=== PATIENT | male | born 1935 | race Two or more races ===

== ENCOUNTER → 2025-02-18 13:57 | Outpatient (REF) | payer MEDICARE, OTHER, SELFPAY | LOC: RAD 13:57 | PROVIDERS: ATTENDING PHYSICIAN Internal Medicine Geriatric Medicine | DX: M25.532 Pain in left wrist (principal); M25.522 Pain in left elbow | CPT/HCPCS: 73080; 73110 ==

== ENCOUNTER 2025-09-18 17:35 | Inpatient (IN) | payer MEDICARE, OTHER, SELFPAY ==
[2025-09-18 13:49] VITALS: BMI 27.1
--- NOTE | 2025-09-18 13:54 | ED.GENMED ---
History of Present Illness
<Mario Morgan MD, Resident - Last Filed: 09/18/25 16:12>
General
Chief Complaint: Fall
Time Seen by Provider: 09/18/25 13:52
History of Present Illness
History of Present Illness:
89 yo M PMH COPD, CAD, HTN, HLD, CKD p/w fall coming from [facility].
During my interview, arousable but appears to persistently fall asleep on me.
He says he woke up on the ground and does not have any recollection of series of events.
Per ED nursing staff, he was found on the ground for 6-7 hours, does not remember if he had pain, palpitations, etc.
Does not appear to be a reliable historian to me.
Review of Systems
<Mario Morgan MD, Resident - Last Filed: 09/18/25 16:12>
Review of Systems
Unable to obtain full review of systems at this time due to: due to acuity
Phy Exam
<Mario Morgan MD, Resident - Last Filed: 09/18/25 16:12>
Physical Exam
Physical Exam:
VS: HR 79; T 98.9 on 2L O2
General: arousable, but persistently falls asleep on me, coarse breath sounds
CV: no murmurs on my exam
Pulm: coarse breath sounds, with wheezes
Abd: no tenderness to palpation
MSK: L > R swelling, but not tender
Neuro: AOx3, but not able to provide a history, grossly nonfocal
Course
<Mario Morgan MD, Resident - Last Filed: 09/18/25 16:12>
Orders/Labs/Results
Orders:
Orders
09/18/25 13:53
ECG [Electrocardiogram (*1)] Urgent
Reason for Study: Fatigue / Weakness
EKG- Treatment ONCE
09/18/25 13:57
CR Chest - 2 Views Urgent
Comment:
Reason For Exam: respiratory distress
09/18/25 13:58
Complete Blood Count/With Diff Urgent
09/18/25 13:59
COVID-19 Antigen Urgent
Source: Nasal Swab
INF RAPID [Influenza A+B Rapid Molecular] Urgent
EMMA Source: Nasal Swab
Specimen Description:
09/18/25 14:25
Add On- LAB Urgent
Tests Added?: CK, VBG
09/18/25 14:29
CT Head W/o Iv Contrast Urgent
Comment:
Reason For Exam: fall
Urinalysis Reflex To Culture Urgent
09/18/25 15:03
Arterial Blood Gas Urgent
Comment: ADD ON
09/18/25 15:54
Comprehensive Metabolic Panel Urgent
Creatine Phosphokinase Urgent
Comment: ADD ON
NT-proBNP Urgent
Troponin I Urgent
Abnormal Lab Results
09/18/25
13:58
RBC 3.05 L 10^6/uL
(4.70-6.10)
Hgb 10.3 L g/dL
(13.0-18.0)
Hct 30.5 L %
(39.0-52.0)
MCV 100.0 H fL
(80.0-94.0)
MCH 33.8 H pg
(27.0-31.0)
RDW 21.5 H %
(11.5-14.5)
MPV 11.4 H fL
(7.4-10.4)
Abs Immat Gran (auto) 0.1 H 10^3/uL
(0-0.05)
Absolute Lymphs (auto) 0.9 L 10^3/uL
(1.2-3.4)
Absolute Monos (auto) 1.2 H 10^3/uL
(0.1-0.6)
Immature Gran % 0.9 H %
(0-0.5)
Lymphocytes % 11.9 L %
(20.5-51.1)
Monocytes % 15.5 H %
(1.7-9.3)
09/18/25 13:58
Vital Signs
Initial and Last Documented VS:
Initial Vital Signs
Temp Pulse Resp
98.9 F 79 18
09/18/25 13:49 09/18/25 13:49 09/18/25 13:49
Last Documented Vital Signs
Temp Pulse Resp
98.9 F 79 18
09/18/25 13:49 09/18/25 13:49 09/18/25 13:49
<Cesar Padilla MD - Last Filed: 09/18/25 15:15>
Orders/Labs/Results
Orders:
Orders
09/18/25 13:53
ECG [Electrocardiogram (*1)] Urgent
Reason for Study: Fatigue / Weakness
EKG- Treatment ONCE
09/18/25 13:57
CR Chest - 2 Views Urgent
Comment:
Reason For Exam: respiratory distress
09/18/25 13:58
Complete Blood Count/With Diff Urgent
09/18/25 13:59
COVID-19 Antigen Urgent
Source: Nasal Swab
INF RAPID [Influenza A+B Rapid Molecular] Urgent
EMMA Source: Nasal Swab
Specimen Description:
09/18/25 14:25
Add On- LAB Urgent
Tests Added?: CK, VBG
09/18/25 14:29
CT Head W/o Iv Contrast Urgent
Comment:
Reason For Exam: fall
Urinalysis Reflex To Culture Urgent
09/18/25 15:03
Arterial Blood Gas Urgent
Comment: ADD ON
09/18/25 15:54
Comprehensive Metabolic Panel Urgent
Creatine Phosphokinase Urgent
Comment: ADD ON
NT-proBNP Urgent
Troponin I Urgent
Abnormal Lab Results
09/18/25
13:58
RBC 3.05 L 10^6/uL
(4.70-6.10)
Hgb 10.3 L g/dL
(13.0-18.0)
Hct 30.5 L %
(39.0-52.0)
MCV 100.0 H fL
(80.0-94.0)
MCH 33.8 H pg
(27.0-31.0)
RDW 21.5 H %
(11.5-14.5)
MPV 11.4 H fL
(7.4-10.4)
Abs Immat Gran (auto) 0.1 H 10^3/uL
(0-0.05)
Absolute Lymphs (auto) 0.9 L 10^3/uL
(1.2-3.4)
Absolute Monos (auto) 1.2 H 10^3/uL
(0.1-0.6)
Immature Gran % 0.9 H %
(0-0.5)
Lymphocytes % 11.9 L %
(20.5-51.1)
Monocytes % 15.5 H %
(1.7-9.3)
09/18/25 13:58
Vital Signs
Initial and Last Documented VS:
Initial Vital Signs
Temp Pulse Resp
98.9 F 79 18
09/18/25 13:49 09/18/25 13:49 09/18/25 13:49
Last Documented Vital Signs
Temp Pulse Resp
98.9 F 79 18
09/18/25 13:49 09/18/25 13:49 09/18/25 13:49
<Mario Morgan MD, Resident - Last Filed: 09/18/25 16:12>
MDM/Problems Addressed
Differential Diagnosis Includes:
syncope, arrhythmia, ACS, hypercarbia, seizure, vasovagal, cardiac valvular disease, rhabdomyolysis
MDM/Problems Addressed:
89 yo M PMH COPD, CAD, HTN, HLD, CKD p/w fall coming from [facility].
Does not appear to be a reliable historian, but ED nursing staff reports he was down for several hours.
He denies any focal pain on joints for now
will need to workup arrhythmia, concern for rhabdo given that he was down for hours. He is persistently sleeping while talking me, concern for hypercarbia given hx of COPD
seizure? no clear lateral tongue bite on my exam
EKG appears NSR with RBBB
Plan:
- CBC, CMP
- CK
- VBG
- Troponin
- EKG
- CXR
- CTH noncontrast
- UA
- flu/covid panel
- NTproBNP
Update:
- positive for Flu A
- negative for covid
- CXR no acute process
- CT head noncontrast no acute intracranial abnormalities
- CBC Hgb 10.3.
- will be admitted, hospitalist notified.
<Mario Morgan MD, Resident - Last Filed: 09/18/25 16:12>
*Pulse Oximetry
Patient hypoxic: not evaluated
*Critical Care Note
Total Time (30-74mins, 75-104mins- exclusive of procedures): Not Applicable
ED Attending Note
<Mario Morgan MD, Resident - Last Filed: 09/18/25 16:12>
-
Portions of this chart may have been created with voice recognition software.� Occasional wrong word or��sound alike� substitutions may have occurred due to the inherent limitations of voice recognition software.
<Cesar Padilla MD - Last Filed: 09/18/25 15:15>
ED Attending Note
Patient seen and examined by attending physician: Yes
I performed a history and physical exam of patient and discussed management with resident, I reviewed resident's note and agree with documented findings and plan of care.: Yes
ED Attending Note:
89-year-old male very weak feeling over the last 3 to 4 days. Was on the floor for hours. Some cough and congestion. Lives independently.
On exam patient is elderly frail nontoxic but generally weak appearing. Heart regular rate and rhythm. Lungs with audible expiratory wheezing and rhonchi. No significant tachypnea. Warm and dry. No obvious trauma. Grossly nonfocal.
Positive influenza. Mild anemia. Negative chest x-ray. CT scan pending of the head
Major issue at this time pending electrolytes appears to be the influenza and weakness. Warrants inpatient management. Pulmonary toilet.
Discharge Plan
Departure
Patient Disposition: Admit
Date of Disposition: 09/18/25
Time of Disposition: 16:10
Admit to: Telemetry
Presentation/result/management discussed w/ accepting MD/DO: Hospitalist
Condition: Fair
Discharge Problem:
Weakness
Prescriptions:
No Action
aspirin 81 mg Tablet,Delayed Release (Dr/Ec)
81 mg PO DAILY
ibuprofen 200 mg Tablet
400 mg PO TIDPRN PRN (Reason: mild pain)
furosemide 20 mg Tablet
20 mg PO MOWEFR@0800
albuterol sulfate 90 mcg/actuation Hfa Aerosol Inhaler
2 puff INHALATION R Q4HPRN PRN (Reason: sob/wheezing)
rosuvastatin 10 mg Tablet
10 mg PO DAILY
Trelegy Ellipta 200-62.5-25 mcg Blister With Device
1 inh INHALATION R BID
diclofenac sodium 1 % gel
1 applic topical DAILY
Referrals:
UNKNOWN - PT NOT,INTERVIEWE [Unknown Provider]
Interventions
Interventions:
*General Assessment Last Done: 09/18/25 13:49
*Neglect/Abuse Screening Last Done: 09/18/25 13:49
*ED COVID-19 Vaccine History Last Done: 09/18/25 13:49
*ED Influenza Vaccine History Last Done: 09/18/25 13:49
*Risk Screen - Suicide (C-SSRS) Last Done: 09/18/25 13:49
ED-Musculoskeletal Assessment Last Done: 09/18/25 14:29
ED- Neurological Assessment Last Done: 09/18/25 14:29
ED-Skin Assessment Last Done: 09/18/25 14:29
Discharge Date and Time
Print Language: SPANISH
[2025-09-18 14:13] LABS: Hematocrit 30.5 % (39.0-52.0); Hemoglobin 10.3 g/dL (13.0-18.0); Mean Corp Hgb Conc. 33.8 g/dL (33.0-37.0); Mean Corpuscular Volume 100.0 fL (80.0-94.0); Nucleated Red Blood Cells % 0.9 % (-); Platelet Count 173 10^3/uL (130-400); Red Cell Dist. Width 21.5 % (11.5-14.5)
[2025-09-18 14:42] LABS: COVID-19 Antigen Negative (Negative)
[2025-09-18 15:00] VITALS: BP 107/83
--- NOTE | 2025-09-18 16:09 | HPS.HSE ---
Family Physician
-
Family Physician: Madalyn Culver
Chief Complaint
-
Fall
History of Present Illness
Patient is 89 years old with history of COPD, coronary artery disease, hypertension, hyperlipidemia, came to the ER status post fall from [facility].
As per record patient was found on the ground for 6 to 7 hours, does not remember if he had pain, or palpitation or syncope.
Patient seen and examined at bedside, son at bedside who help providing history, patient was coughing last night as per son, and also was having episodes of confusion and chills, but no recent fever, was complaining of chest pain with coughing.
Patient came from [facility] after found in the ground for 6 to 7 hours, CT head negative, chest x-ray shows no acute pulmonary disease.
Tested positive for influenza A, negative for COVID.
Patient seen and examined at bedside, still coughing, but denies shortness of breath, complaining of left leg pain but otherwise no abdominal pain, no nausea, no vomiting, no diarrhea or constipation.
Medical History
Past Medical History
Past Medical History: Reports CAD, COPD, HTN, Hypercholesterolemia and Other (BPH, CKD)
Past Surgical History: Reports Other
Additional Past Surgical History:
Melanoma excision.
Left ACL/MCL Repair
Social History
Unable to obtain full social history at this time due to: Dementia
Tobacco: Non-smoker
Living: Assisted Living
Family History
Family History: Not pertinent
Allergies / Home Medications
Allergies reflects when Allergies were last updated in [employer] [facility]
Home Medications with original date entered in [employer] [facility]
Allergy/Medication List:
Allergies
Allergy/AdvReac Type Severity Reaction Status Date / Time
adhesive Allergy Unknown Verified 09/18/25 13:48
gabapentin Allergy Unknown Verified 09/18/25 13:48
meloxicam (From Mobic) Allergy Unknown Verified 09/18/25 13:48
NSAIDS (Non-Steroidal Allergy Unknown Verified 09/18/25 13:48
Anti-Inflamma
[id number] Reductase Allergy Unknown Verified 09/18/25 13:48
Inhibitor
Home Medications
albuterol sulfate 90 mcg/actuation aerosol inhaler 2 puff inhalation R Q4HPRN PRN sob/wheezing 09/18/25
aspirin 81 mg tablet,delayed release 81 mg PO DAILY 09/18/25
diclofenac sodium 1 applic topical DAILY right hip/lower back 09/18/25
fluticasone fur. 200 mcg-umeclid 62.5 mcg-vilant 25 mcg inhalat.powder (Trelegy Ellipta) 1 inh inhalation R BID 09/18/25
furosemide 20 mg tablet 20 mg PO MOWEFR@0800 09/18/25
ibuprofen 200 mg tablet 400 mg PO TIDPRN PRN mild pain 09/18/25
rosuvastatin 10 mg tablet 10 mg PO DAILY 09/18/25
Review of Systems
-
History Source: Patient and Family
A 12 point ROS was completed and negative except as noted: Yes
Constitutional: Reports Fatigue; Denies Fever, Weight Gain, Weight Loss or Sleep Disturbance
EENT: Denies Tearing, Sore Throat, Mouth Pain, Mouth Swelling or Runny Nose
Respiratory: Reports Cough and Trouble Breathing; Denies Hemoptysis
Cardiac: Reports Chest Pain; Denies Diaphoresis, Palpitations or Syncope
Abdomen/GI: Denies Abdominal Pain, Nausea, Vomiting, Diarrhea, Constipated, Bloody Stools or Black Stools
: Denies Dysuria, Frequency, Flank Pain, Incontinence, Difficulty Voiding, Urgency, Bleeding or Dark Urine
Musculoskeletal: Reports Joint Pain and Muscle Pain; Denies Joint Swelling, Muscle Stiffness or Edema
Skin: Denies Itching or Rash
Neurological: Denies Dizzy, Headache, Weakness or Numbness
Endocrine: Denies Polyuria, Polydipsia or Temp Intolerance
Hematologic/Lymphatic: Denies Bleeding, Swollen Glands or Bruising
Psych: Reports Calm; Denies Depression, Anxiety or Panic Disorder
Physical Exam
Vital Signs
Vital Signs
Temp Pulse Resp
98.9 F 79 18
09/18/25 13:49 09/18/25 13:49 09/18/25 13:49
Physical Exam
General: Well Developed, Well Nourished, No Apparent Distress, Comfortable and Good Appetite; No Pain, Chills or Sweats
HEENT: NormoCephalic, Moist mucous membranes, Atraumatic, Good Dentition, PERRLA, Nose Appears Normal and Ears Appear Normal
Respiratory: Wheezes, Rales, Rhonchi and Crackles
Cardiac: S1/S2 and Regular Rhythm
Breast: Deferred by me
GI: Soft, Non Tender, Non Distended and Normal Bowel Sounds
Genito-urinary: Deferred by me
Musculoskeletal: No Clubbing, No Cyanosis and No Edema
Skin: Warm; No Rash, Jaundice, Ulcers, Lesions or Decubitus Ulcers
Neuro: Awake, Alert, Oriented, AO x 3, No Motor Deficits, Nonfocal/grossly intact and Cranial Nerves Intact
Hematologic/Lymphatic: No Lymphadenopathy
Psych: Calm
Laboratory Results
-
09/18/25 13:58
Laboratory Results
Total Bilirubin Cancelled 09/18/25 13:58
AST Cancelled 09/18/25 13:58
ALT Cancelled 09/18/25 13:58
Alkaline Phosphatase Cancelled 09/18/25 13:58
Data Reviewed
-
Diagnostic Radiology: Report Reviewed by me
CT Scan: Report Reviewed by me
Medical Tests (Nuc Med, Echo, EKG etc): Report Reviewed by me
Lab Data: Labs Reviewed by me
Old Records: Reviewed
Impression/Plan
-
Impression:
Patient is 89 years old with history of COPD, coronary artery disease, hypertension, hyperlipidemia, came to the ER status post fall from [facility].
As per record patient was found on the ground for 6 to 7 hours, does not remember if he had pain, or palpitation or syncope
Patient tested positive for influenza A.
Assessment/plan:
Status Post Fall
Chest X-ray: No acute cardiopulmonary process.
CT Head:
No acute abnormalities.
No intracranial hemorrhage, edema, or mass effect to suggest neoplasm.
No abnormal extra-axial fluid collections or recent infarct.
Diffuse cortical atrophy with prominence of CSF spaces.
Punctate and patchy areas of low density in periventricular and subcortical white matter bilaterally, likely ischemic or degenerative changes consistent with age.
No calvarial fracture.
Opacification of midportion of right maxillary sinus suggesting chronic inflammatory changes, possible retention cyst or polyp.
Plan: Fall precautions, PT/OT consult, oncology social work for discharge planning, check orthostatic vitals.
Influenza A
Start Tamiflu.
Chest X-ray: No acute cardiopulmonary process.
Duonebs as needed.
Acute COPD Exacerbation/history of COPD
Diffuse wheezing noted.
Continue home inhalers
Start Solu-Medrol and Duonebs.
Elevated troponin.
Patient had a chest pain but appears musculoskeletal was coughing.
No EKG changes
Continue to monitor troponin.
Continue aspirin
Chronic CHF, unspecific type.
Continue home Lasix.
Still pending renal function.
BNP elevated at 2260
History of CKD.
Pending kidney function and electrolyte
History of Hypertension
No meds at home.
History of Hyperlipidemia
Continue statin therapy.
Macrocytic Anemia
Iron study pending
Vitamin B12 level pending
' At the time of admission, CMP, CPK, ABG was not resulted yet which may affect the above assessment plan including level of care '
CODE STATUS: Full code
DVT prophylaxis: Lovenox
Diet: Regular diet
Family communication: Discussed with son at bedside
Disposition: Admit to telemetry
Total time spent on today's encounter was 75 minutes which included time spent in counseling the patient/family regarding diagnosis and treatment plan as listed above, goals of care, and symptom management. Case was discussed with nursing staff,
specialists, and care coordinators/case management. All labs and imaging personally reviewed by me. Remainder the time spent in detailed review of previous records, lab data, imaging, and other medical provider documentation.
Part of this note was created using voice recognition system. Occasional wrong word or �sound alike� substitutions may have inadvertently occurred due to the inherent limitations of voice recognition software. If noted kindly bring it to my
attention for correction.
[2025-09-18 16:39] LABS: Troponin I 0.127 ng/ml
[2025-09-18] MEDS: NSS 1000 IV ×2 (16:58→18:32)
[2025-09-18 17:45] LABS: ALT (SGPT) 28 U/L (0-50); AST (SGOT) 88 U/L (17-59); Albumin 4.2 g/dl (3.5-5.0); Alkaline Phosphatase 64 U/L (38-126); Blood Urea Nitrogen 56 mg/dl (9-20); Calcium 8.9 mg/dl (8.4-10.2); Carbon Dioxide 23 mmol/L (22-30); Chloride 108 mmol/L (98-107); Estimated Creatinine Clearance 13 ml/min; Glucose 93 mg/dl (70-99); Potassium 4.8 mmol/L (3.5-5.1); Sodium 139 mmol/L (135-145); Total Protein 6.7 g/dl (6.3-8.2); eGFR 16.10
[2025-09-18 18:20] VITALS: BP 162/77
[2025-09-18 18:29] VITALS: BMI 27.5
[2025-09-18 19:16] VITALS: BP 133/67
[2025-09-18] MEDS: DUONEB 3 ML INH (19:24)
[2025-09-18] MEDS: SYMBICORT 160/4.5 MCG INHALER 2 PUFF INH (19:36)
[2025-09-18] MEDS: SOLU-MEDROL PF 40 MG IV (20:04)
[2025-09-18] MEDS: TAMIFLU 30 MG PO (21:23)
[2025-09-18 23:30] VITALS: BP 128/63
[2025-09-19] VITALS (8 sets, daily range): BP systolic 121–149; BP diastolic 61–79; PULSE 80; O2SAT 95
[2025-09-19] MEDS: HEPARIN 5000 UNITS SC ×4 (00:44→23:57)
[2025-09-19 00:48] LABS: Troponin I 0.107 ng/ml
[2025-09-19] MEDS: SOLU-MEDROL PF 40 MG IV ×3 (02:30→17:35)
[2025-09-19] MEDS: ROBITUSSIN DM 5 ML PO (03:07)
[2025-09-19 06:50] LABS: Urine Character Clear (Clear)
[2025-09-19] MEDS: DUONEB 3 ML INH ×4 (07:07→20:23)
[2025-09-19] MEDS: SPIRIVA RESPIMAT 2.5 MCG 2 PUFF INH (07:07)
[2025-09-19] MEDS: SYMBICORT 160/4.5 MCG INHALER 2 PUFF INH ×2 (07:12→20:24)
[2025-09-19 08:09] LABS: Hematocrit 28.7 % (39.0-52.0); Hemoglobin 9.6 g/dL (13.0-18.0); Mean Corp Hgb Conc. 33.4 g/dL (33.0-37.0); Mean Corpuscular Volume 101.4 fL (80.0-94.0); Platelet Count 164 10^3/uL (130-400); Red Cell Dist. Width 21.2 % (11.5-14.5)
[2025-09-19 08:34] LABS: Troponin I 0.087 ng/ml
[2025-09-19] MEDS: NSS 1000 IV ×2 (08:40→21:38)
[2025-09-19 08:44] LABS: Blood Urea Nitrogen 59 mg/dl (9-20); Calcium 8.3 mg/dl (8.4-10.2); Carbon Dioxide 19 mmol/L (22-30); Chloride 111 mmol/L (98-107); Estimated Creatinine Clearance 14 ml/min; Glucose 169 mg/dl (70-99); HDL Cholesterol 46 mg/dl; LDL Cholesterol, Calculated 60 mg/dl; Magnesium 2.5 mg/dl (1.6-2.3); Potassium 5.7 mmol/L (3.5-5.1); Sodium 138 mmol/L (135-145); Very Low Density Lipoprotein 18 mg/dl (0-30); eGFR 17.93
[2025-09-19 08:48] LABS: Total Iron Binding Capacity 276 ug/dl (261-462)
[2025-09-19 09:07] LABS: TSH 0.31 uIU/ml (0.47-4.68)
[2025-09-19 09:11] LABS: Ferritin 329.0 ng/ml (17.9-464.0)
[2025-09-19 09:26] LABS: Vitamin B12 723 pg/ml (239-931)
[2025-09-19] MEDS: DICLOFENAC 1% TOPICAL GEL 4 GRAM TOPICAL (09:59)
[2025-09-19] MEDS: TAMIFLU 30 MG PO (09:59)
[2025-09-19] MEDS: ASPIR LOW (ENTERIC COATED) 81 MG PO (09:59)
[2025-09-19] MEDS: CRESTOR 10 MG PO (09:59)
--- NOTE | 2025-09-19 10:59 | W.PN.HOSP.TC ---
Today's Communication/Plan
-
IV fluid.
Nephrology consulted
Tamiflu.
DuoNebs.
Solumedrol
Assessment / Plan
Assessment / Plan
Impression:
Patient is 89 years old with history of COPD, coronary artery disease, hypertension, hyperlipidemia, came to the ER status post fall from [facility].
As per record patient was found on the ground for 6 to 7 hours, does not remember if he had pain, or palpitation or syncope
Patient tested positive for influenza A.
Noted to have rhabdomyolysis and renal failure
Assessment/plan:
Status Post Fall
Chest X-ray: No acute cardiopulmonary process.
CT Head:
No acute abnormalities.
No intracranial hemorrhage, edema, or mass effect to suggest neoplasm.
No abnormal extra-axial fluid collections or recent infarct.
Diffuse cortical atrophy with prominence of CSF spaces.
Punctate and patchy areas of low density in periventricular and subcortical white matter bilaterally, likely ischemic or degenerative changes consistent with age.
No calvarial fracture.
Opacification of midportion of right maxillary sinus suggesting chronic inflammatory changes, possible retention cyst or polyp.
Plan: Fall precautions, PT/OT consult, social service worker for discharge planning, check orthostatic vitals.
Acute rhabdomyolysis.
Continue IV fluid with caution.
Monitor CPK, improved.
Acute renal failure on ?CKD/hyperkalemia.
IV fluid.
Avoid nephrotoxins.
Nephrology consulted
Unknown creatinine baseline
Influenza A
Started Tamiflu.
Chest X-ray: No acute cardiopulmonary process.
Duonebs as needed.
Acute COPD Exacerbation/history of COPD
Diffuse wheezing noted.
Continue home inhalers
Start Solu-Medrol and Duonebs.
Elevated troponin.
Patient had a chest pain but appears musculoskeletal was coughing.
No EKG changes
Continue to monitor troponin.
Continue aspirin
Chronic CHF, unspecific type.
Holding Lasix for elevated renal function.
BNP elevated at 2260
History of Hypertension
No meds at home.
History of Hyperlipidemia
Continue statin therapy.
Macrocytic Anemia
Iron study pending
Vitamin B12 level pending
CODE STATUS: Full code
DVT prophylaxis: Heparin
Diet: Regular diet
Family communication: Discussed with son at bedside
Disposition: IV fluid.
Nephrology consulted
Tamiflu.
DuoNebs.
Solumedrol
Total time spent on today's encounter was 55 minutes which included time spent in counseling the patient/family regarding diagnosis and treatment plan as listed above, goals of care, and symptom management. Case was discussed with nursing staff,
specialists, and care coordinators/case management. All labs and imaging personally reviewed by me. Remainder the time spent in detailed review of previous records, lab data, imaging, and other medical provider documentation.
Part of this note was created using voice recognition system. Occasional wrong word or �sound alike� substitutions may have inadvertently occurred due to the inherent limitations of voice recognition software. If noted kindly bring it to my
attention for correction.
Anticipated Discharge: > 48 hours
Subjective/Interval History
-
Date of Service: September 19, 2025
Patient seen and examined at bedside, sleepy during conversation, still with significant wheezing and Rales.
Objective Data
-
Labs:
Laboratory Results
09/18/25 09/19/25
21:15 07:53
WBC 5.3
Hgb 9.6 L
Hct 28.7 L
Plt Count 164
HCO3 Cancelled
Sodium 138
Potassium 5.7 H
Chloride 111 H
Carbon Dioxide 19 L
BUN 59 H
Creatinine 3.2 H
Glucose 169 H
Calcium 8.3 L
Vital Signs:
Vital Signs
Temp Pulse Resp BP Pulse Ox
98.9 F 79 18 121/65 96
09/19/25 07:15 09/19/25 07:15 09/19/25 07:15 09/19/25 07:15 09/19/25 07:15
I&O
09/18/25 09/19/25 09/20/25
06:59 06:59 06:59
Intake Total 240 / 240
Output Total 580 / 580
Balance -340 / -340
Physical Exam
-
General: Well Developed, Well Nourished, No Apparent Distress and Comfortable
HEENT: Normocephalic, Atraumatic, Moist Mucous Membranes, No Ptosis, PERRLA and Nose Appears Normal
Respiratory: Wheezes, Rales, Rhonchi, Crackles and Non Labored Respirations
Cardiac: Regular Rhythm and S1/S2
Breast: Deferred by me
GI: Soft, Nontender, Nondistended and Normal Bowel Sounds
Genito-urinary: No Costovertebral Tender
Musculoskeletal: No Clubbing, No Cyanosis and No Edema
Skin: Warm
Neuro: Awake
Psych: Calm and Confused
Data Reviewed
-
Diagnostic Radiology: Image personally visualized and interpreted and Report Reviewed by me
CT Scan: Image personally visualized and interpreted and Report Reviewed by me
Ultrasound: Image personally visualized and interpreted and Report Reviewed by me
MRI: Image personally visualized and interpreted and Report Reviewed by me
Medical Tests (Nuc Med, Echo etc): Image personally visualized and interpreted and Report Reviewed by me
Labs: Labs Reviewed by me
Old Records: Reviewed
--- NOTE | 2025-09-19 12:05 | CM ---
Patient seen at bedside in [address] [place] [address]. Patient son, Junior states that patient lives at [facility] and that patient has a walker, wheelchair, power chair and home O2 from [address] [place] [address]. Patient son has flu and will ask his brother Duc to come
to see patient today. Patient son states that patient PCP is Dr. Madalyn Melendez and he uses the [facility] the [facility]. Therapy is recommending SNF and CM reviewed the recommendation with son; plan to send referral to [facility]. CM left VM or liaison at [facility] to request update regarding bed availability. CM will continue to follow for discharge planning needs.
Plan; SNF; pending bed availability [facility] if possible
--- NOTE | 2025-09-19 13:34 | W.CON.NEPH ---
Consultation
-
Date/Time Consultation Requested: September 18, 2025 at 1600
Date/Time Consultation Performed: September 19 2025-13
Requesting Provider: Darin Faust
Performing Provider: Dr. Breen
Reason for Consultation: Acute on chronic kidney disease and hyperkalemia
Medical History
-
Chief Complaint: Acute on chronic kidney disease hyperkalemia
History of Present Illness:
89 years old with history of COPD, coronary artery disease, hypertension, hyperlipidemia, came to the ER status post fall from [facility].
As per record patient was found on the ground for 6 to 7 hours,
Found to have influenza A positive
Renal consult for chronic kidney disease and hyperkalemia with a mild acuity stage IV kidney disease follows with Dr. Monteiro in [place]
Past Medical History
COPD, coronary artery disease, hypertension, hyperlipidemia, chronic kidney disease
Social History
Tobacco: Non-Smoker
Alcohol: None
Family History
Family History: Not Pertinent
Allergies / Home Medications
Allergy/AdvReac Type Severity Reaction Status Date / Time
adhesive Allergy Unknown Verified 09/18/25 13:48
gabapentin Allergy Unknown Verified 09/18/25 13:48
meloxicam (From Mobic) Allergy Unknown Verified 09/18/25 13:48
NSAIDS (Non-Steroidal Allergy Unknown Verified 09/18/25 13:48
Anti-Inflamma
Mvdleaa-LRP-DgJ Reductase Allergy Unknown Verified 09/18/25 13:48
Inhibitor
�Medication �Instructions �Recorded �Confirmed �Type
albuterol sulfate 90 mcg/actuation 2 puff inhalation R Q4HPRN PRN 09/18/25 09/18/25 History
aerosol inhaler sob/wheezing
aspirin 81 mg tablet,delayed 81 mg PO DAILY Blood Clot 09/18/25 09/18/25 History
release Prevention/Tx
diclofenac sodium 1 applic topical DAILY right 09/18/25 09/18/25 History
hip/lower back
fluticasone fur. 200 mcg-umeclid 1 inh inhalation R BID 09/18/25 09/18/25 History
62.5 mcg-vilant 25 mcg Lung/Breathing Issues
inhalat.powder (Trelegy Ellipta)
furosemide 20 mg tablet 20 mg PO MOWEFR@0800 Fluid 09/18/25 09/18/25 History
Retention/Swelling
ibuprofen 200 mg tablet 400 mg PO TIDPRN PRN mild pain 09/18/25 09/18/25 History
rosuvastatin 10 mg tablet 10 mg PO DAILY High Cholesterol 09/18/25 09/18/25 History
Review of Systems
-
All other systems: Negative unless noted
Physical Exam
Vital Signs
Vital Signs
Temp Pulse Resp BP Pulse Ox
98.1 F 80 18 149/79 95
09/19/25 11:05 09/19/25 11:05 09/19/25 11:05 09/19/25 11:05 09/19/25 11:05
Lab Results
WBC 5.3 10^3/uL (4.8-10.8) 09/19/25 07:53
RBC 2.83 10^6/uL (4.70-6.10) L 09/19/25 07:53
Hgb 9.6 g/dL (13.0-18.0) L 09/19/25 07:53
Hct 28.7 % (39.0-52.0) L 09/19/25 07:53
Plt Count 164 10^3/uL (130-400) 09/19/25 07:53
Sodium 138 mmol/L (135-145) 09/19/25 07:53
Potassium 5.7 mmol/L (3.5-5.1) H 09/19/25 07:53
Chloride 111 mmol/L (98-107) H 09/19/25 07:53
Carbon Dioxide 19 mmol/L (22-30) L 09/19/25 07:53
BUN 59 mg/dl (9-20) H 09/19/25 07:53
Creatinine 3.2 mg/dL (0.7-1.3) H 09/19/25 07:53
eGFR 17.93 09/19/25 07:53
Glucose 169 mg/dl (70-99) H 09/19/25 07:53
Calcium 8.3 mg/dl (8.4-10.2) L 09/19/25 07:53
Rou-H-Hackllvmopa Pept 2260 pg/ml 09/18/25 15:54
Albumin 4.2 g/dl (3.5-5.0) 09/18/25 17:16
Physical Exam
General no acute distress
HEENT no cephalic atraumatic extraocular muscle intact no scleral icterus no JVD neck supple
lungs clear to auscultation bilateral
heart regular S1-S2 positive
abdomen soft nontender positive bowel sounds
extremities no edema pulses present bilateral
Neurologically nonfocal alert and oriented x 3
Skin no lesions no abrasions no petechiae
Psych normal affect no bizarre behavior
Data Reviewed
-
Radiology: Image Personally Visualized and interpreted
CT Scan: Image Personally Visualized and interpreted
Labs: Labs Reviewed by me, Discussed with Physician and Discussed with Patient
Assessment/Plan
-
89 years old with history of COPD, coronary artery disease, hypertension, hyperlipidemia, came to the ER status post fall from [facility].
As per record patient was found on the ground for 6 to 7 hours,
Found to have influenza A positive
Renal consult for chronic kidney disease and hyperkalemia with a mild acuity stage IV kidney disease follows with Dr. Monteiro in [place]
Impression
Acute on chronic kidney disease stage IV uncertain baseline
Hyperkalemia
Influenza A
COPD
CAD
Elevated CK with history of downtime 7 hours
Plan
Agree IV fluid
Discontinue Lasix
Trend CPK
Lokelma ordered/check bladder scan
Tamiflu
AM labs
[2025-09-19] MEDS: LOKELMA 10 GRAM PO (13:56)
[2025-09-20] MEDS: SOLU-MEDROL PF 40 MG IV ×3 (02:41→20:36)
[2025-09-20 03:54] VITALS: BP 120/65
[2025-09-20] MEDS: DUONEB 3 ML INH (07:40)
[2025-09-20] MEDS: SYMBICORT 160/4.5 MCG INHALER 2 PUFF INH ×2 (07:41→19:02)
[2025-09-20] MEDS: SPIRIVA RESPIMAT 2.5 MCG INH (07:41)
[2025-09-20 08:06] LABS: Hematocrit 25.2 % (39.0-52.0); Hemoglobin 8.3 g/dL (13.0-18.0); Mean Corp Hgb Conc. 32.9 g/dL (33.0-37.0); Mean Corpuscular Volume 104.1 fL (80.0-94.0); Platelet Count 145 10^3/uL (130-400); Red Cell Dist. Width 20.9 % (11.5-14.5)
[2025-09-20 08:18] VITALS: BP 131/60
[2025-09-20 08:46] LABS: Blood Urea Nitrogen 65 mg/dl (9-20); Calcium 7.9 mg/dl (8.4-10.2); Carbon Dioxide 17 mmol/L (22-30); Chloride 110 mmol/L (98-107); Estimated Creatinine Clearance 14 ml/min; Glucose 198 mg/dl (70-99); Magnesium 2.4 mg/dl (1.6-2.3); Potassium 4.7 mmol/L (3.5-5.1); Sodium 138 mmol/L (135-145); eGFR 17.28
[2025-09-20] MEDS: TAMIFLU 30 MG PO (09:06)
[2025-09-20] MEDS: HEPARIN 5000 UNITS SC ×2 (09:06→15:21)
[2025-09-20] MEDS: CRESTOR 10 MG PO (09:06)
[2025-09-20] MEDS: ASPIR LOW (ENTERIC COATED) 81 MG PO (09:07)
[2025-09-20] MEDS: DICLOFENAC 1% TOPICAL GEL 4 GRAM TOPICAL (09:07)
--- NOTE | 2025-09-20 09:10 | PN.CDI ---
CDI
- -
CDI:
Physician Documentation Request
Admit Date: 09/18/25 17:35
Dear Doctor Christianne,
Please review the following and provide your response in the progress notes.
Clinical Indicators:
- ER Physician 'Per ED nursing staff, he was found on the ground for 6-7 hours'
- 09/19 PN 'Acute rhabdomyolysis'
- 4L IVF given
Laboratory Tests
09/18/25 09/19/25
17:16 07:53
Creatine Kinase 4694 H 2829 H
Please further specify the rhabdomyolysis:
Rhabdomyolysis
Traumatic rhabdomyolysis
Other (please specify)
Use of terms such as suspected, likely, concern for, or probable (associated with a specific diagnosis that is being evaluated, monitored, or treated as if it exists) are acceptable and can be coded in the inpatient setting, when documented at the
time of discharge.
Thank you,
Galina Hall RN
CDI Specialist
Please use your independent medical judgment in providing your response.
--- NOTE | 2025-09-20 09:26 | PN.CDI ---
CDI
- -
CDI:
Physician Documentation Request
Admit Date: 09/18/25 17:35
Dear Doctor Christianne,
Please review the following and provide your response in the progress notes.
Clinical Indicators:
- 09/19 PN 'Elevated troponin' without further specificity
Laboratory Tests
09/18/25 09/18/25 09/19/25
15:54 23:46 07:53
Troponin I 0.127 H* 0.107 H* 0.087 H*
Please clarify the following regarding the documented elevated troponins:
Non-ischemic myocardial injury
Clinically insignificant abnormal lab value
Other (please specify)
Use of terms such as suspected, likely, concern for, or probable (associated with a specific diagnosis that is being evaluated, monitored, or treated as if it exists) are acceptable and can be coded in the inpatient setting, when documented at the
time of discharge.
Thank you,
Galina Hall RN
CDI Specialist
Please use your independent medical judgment in providing your response.
--- NOTE | 2025-09-20 10:42 | W.PN.HOSP.TC ---
Today's Communication/Plan
-
Overall improved
Physical therapy recommending rehab
Continue renally adjusted Tamiflu.
Continue albuterol
Wean steroid
Assessment / Plan
Assessment / Plan
Impression:
Patient is 89 years old with history of COPD, coronary artery disease, hypertension, hyperlipidemia, came to the ER status post fall from [facility].
As per record patient was found on the ground for 6 to 7 hours, does not remember if he had pain, or palpitation or syncope
Patient tested positive for influenza A.
Noted to have rhabdomyolysis and renal failure
Started on IV fluid, CPK improved, kidney function still elevated, seen by nephrology
Assessment/plan:
Status Post Fall with traumatic rhabdomyolysis
Chest X-ray: No acute cardiopulmonary process.
CT Head:
No acute abnormalities.
No intracranial hemorrhage, edema, or mass effect to suggest neoplasm.
No abnormal extra-axial fluid collections or recent infarct.
Diffuse cortical atrophy with prominence of CSF spaces.
Punctate and patchy areas of low density in periventricular and subcortical white matter bilaterally, likely ischemic or degenerative changes consistent with age.
No calvarial fracture.
Opacification of midportion of right maxillary sinus suggesting chronic inflammatory changes, possible retention cyst or polyp.
Plan: Fall precautions, PT/OT consult, director social service for discharge planning, check orthostatic vitals.
Traumatic rhabdomyolysis.
Continue IV fluid with caution.
Monitor CPK, improved.
Acute renal failure on ?CKD/hyperkalemia.
IV fluid.
Avoid nephrotoxins.
Nephrology consulted
Unknown creatinine baseline
Influenza A
Started Tamiflu.
Chest X-ray: No acute cardiopulmonary process.
Duonebs as needed.
Acute COPD Exacerbation/history of COPD
Diffuse wheezing noted.
Continue home inhalers
Start Solu-Medrol and Duonebs.
Non-ischemic myocardial injury
Patient had a chest pain but appears musculoskeletal was coughing.
No EKG changes
Continue to monitor troponin.
Continue aspirin
Chronic CHF, unspecific type.
Holding Lasix for elevated renal function.
BNP elevated at 2260
History of Hypertension
No meds at home.
History of Hyperlipidemia
Continue statin therapy.
Macrocytic Anemia
Iron study pending
Vitamin B12 level pending
CODE STATUS: Full code
DVT prophylaxis: Heparin
Diet: Regular diet
Family communication: Discussed with son at bedside and telephone
Disposition: Overall improved
Physical therapy recommending rehab
Continue renally adjusted Tamiflu.
Continue albuterol
Wean steroid
Total time spent on today's encounter was 55 minutes which included time spent in counseling the patient/family regarding diagnosis and treatment plan as listed above, goals of care, and symptom management. Case was discussed with nursing staff,
specialists, and care coordinators/case management. All labs and imaging personally reviewed by me. Remainder the time spent in detailed review of previous records, lab data, imaging, and other medical provider documentation.
Part of this note was created using voice recognition system. Occasional wrong word or �sound alike� substitutions may have inadvertently occurred due to the inherent limitations of voice recognition software. If noted kindly bring it to my
attention for correction.
Anticipated Discharge: Today
Subjective/Interval History
-
Date of Service: September 20, 2025
Patient seen and examined at bedside, denies any chest pain, wheezing and shortness of breath improved, no abdominal pain, no nausea, no vomiting, no diarrhea or constipation.
Objective Data
-
Labs:
Laboratory Results
09/20/25
07:41
WBC 7.1
Hgb 8.3 L
Hct 25.2 L
Plt Count 145
Sodium 138
Potassium 4.7
Chloride 110 H
Carbon Dioxide 17 L
BUN 65 H
Creatinine 3.3 H
Glucose 198 H
Calcium 7.9 L
Vital Signs:
Vital Signs
Temp Pulse Resp BP Pulse Ox
97.8 F 79 16 131/60 96
09/20/25 08:18 09/20/25 08:18 09/20/25 08:18 09/20/25 08:18 09/20/25 08:18
I&O
09/19/25 09/20/25 09/21/25
06:59 06:59 06:59
Intake Total 240 / 240 1560 / 1560
Output Total 580 / 580 825 / 825
Balance -340 / -340 735 / 735
Physical Exam
-
General: Well Developed, Well Nourished, No Apparent Distress and Comfortable
HEENT: Normocephalic, Atraumatic, Moist Mucous Membranes, No Ptosis, PERRLA and Nose Appears Normal
Respiratory: Rales and Non Labored Respirations
Cardiac: Regular Rhythm and S1/S2
Breast: Deferred by me
GI: Soft, Nontender, Nondistended and Normal Bowel Sounds
Genito-urinary: No Costovertebral Tender
Musculoskeletal: No Clubbing, No Cyanosis and No Edema
Skin: Warm
Neuro: Awake
Psych: Calm and Confused
[2025-09-20] MEDS: VENTOLIN NEBULES 2.5 MG INH ×2 (10:57→19:02)
[2025-09-20 11:39] VITALS: BP 147/75
--- NOTE | 2025-09-20 11:43 | W.PN.NEPH.PH ---
Today's Communication / Plan
-
follow labs
Assessment/Plan
-
89 years old with history of COPD, coronary artery disease, hypertension, hyperlipidemia, came to the ER status post fall from [facility].
As per record patient was found on the ground for 6 to 7 hours,
Found to have influenza A positive
Renal consult for chronic kidney disease and hyperkalemia with a mild acuity stage IV kidney disease follows with Dr. Monteiro in [place]
Impression
Acute on chronic kidney disease stage IV uncertain baseline
Hyperkalemia
Influenza A
COPD
CAD
Elevated CK with history of downtime 7 hours
Plan
possible stable CKD, cr 3.3 s/p IVF, baseline GFR per son was at 20, currently not too far at 17
holding lasix still, may need to resume at d/c
Trend CPK
is better post Lokelma
add po bicarb for met acidisis, follow bladder scan
Tamiflu
AM labs
He is too weak during visit , need SNF bed
d/w pt and son at bedside
d/w primary
-
-
Date of Service: September 20, 2025
CC / HPI / ROS
-
Chief Complaint:
MARCUS vs CKD
History of Present Illness:
cr no sig change at 3.3
Bps table on 2lit of O2
Review of Systems:
sob improving , still wheezing
no pain.
non oliguric with out foely
Labs
-
Labs:
WBC 7.1 10^3/uL (4.8-10.8) 09/20/25 07:41
RBC 2.42 10^6/uL (4.70-6.10) L 09/20/25 07:41
Hgb 8.3 g/dL (13.0-18.0) L 09/20/25 07:41
Hct 25.2 % (39.0-52.0) L 09/20/25 07:41
Plt Count 145 10^3/uL (130-400) 09/20/25 07:41
Sodium 138 mmol/L (135-145) 09/20/25 07:41
Potassium 4.7 mmol/L (3.5-5.1) 09/20/25 07:41
Chloride 110 mmol/L (98-107) H 09/20/25 07:41
Carbon Dioxide 17 mmol/L (22-30) L 09/20/25 07:41
BUN 65 mg/dl (9-20) H 09/20/25 07:41
Creatinine 3.3 mg/dL (0.7-1.3) H 09/20/25 07:41
eGFR 17.28 09/20/25 07:41
Glucose 198 mg/dl (70-99) H 09/20/25 07:41
Calcium 7.9 mg/dl (8.4-10.2) L 09/20/25 07:41
Xhw-P-Wldyxakslxx Pept 2260 pg/ml 09/18/25 15:54
Albumin 4.2 g/dl (3.5-5.0) 09/18/25 17:16
Physical Exam
-
Vital Signs:
Vital Signs
Temp Pulse Resp BP Pulse Ox
97.5 F 98 18 147/75 97
09/20/25 11:39 09/20/25 11:39 09/20/25 11:39 09/20/25 11:39 09/20/25 11:39
Cardiovascular:: Regular rate and rhythm
Respiratory:: Bilateral: Wheeze
Lung Excursion:: Normal
Extremity Edema:: None: Bilateral:
[place] Catheter: No
Other Findings::
walks with walker
skin no rash
--- NOTE | 2025-09-20 12:59 | CM ---
Per Liaison at [facility] bed at SNF thursday, physician made aware and CM will continue to follow.
[2025-09-20] MEDS: SODIUM BICARBONATE 650 MG PO ×2 (13:10→20:36)
[2025-09-20] MEDS: VENTOLIN NEBULES INH (14:33)
[2025-09-20 16:19] VITALS: BP 124/61
[2025-09-20 19:53] VITALS: BP 132/64
[2025-09-20 23:22] VITALS: BP 129/67
[2025-09-21] MEDS: HEPARIN 5000 UNITS SC ×3 (00:52→17:33)
[2025-09-21 03:39] VITALS: BP 123/64
[2025-09-21] MEDS: VENTOLIN NEBULES 2.5 MG INH ×5 (04:58→18:10)
[2025-09-21] MEDS: SYMBICORT 160/4.5 MCG INHALER 2 PUFF INH ×2 (07:50→18:10)
[2025-09-21] MEDS: SPIRIVA RESPIMAT 2.5 MCG 2 PUFF INH (07:50)
[2025-09-21 07:57] VITALS: BP 147/74
[2025-09-21] MEDS: CRESTOR 10 MG PO (09:14)
[2025-09-21] MEDS: ASPIR LOW (ENTERIC COATED) 81 MG PO (09:14)
[2025-09-21] MEDS: TAMIFLU 30 MG PO (09:14)
[2025-09-21] MEDS: SODIUM BICARBONATE 650 MG PO ×2 (09:14→20:45)
[2025-09-21] MEDS: SOLU-MEDROL PF 40 MG IV ×2 (09:15→20:45)
[2025-09-21] MEDS: DICLOFENAC 1% TOPICAL GEL 4 GRAM TOPICAL (09:15)
[2025-09-21 11:41] VITALS: BP 171/78
--- NOTE | 2025-09-21 12:01 | W.PN.HOSP.TC ---
Today's Communication/Plan
-
Overall improved
Physical therapy recommending rehab
Continue renally adjusted Tamiflu.
Continue albuterol
Wean steroid
Assessment / Plan
Assessment / Plan
Impression:
Patient is 89 years old with history of COPD, coronary artery disease, hypertension, hyperlipidemia, came to the ER status post fall from [facility].
As per record patient was found on the ground for 6 to 7 hours, does not remember if he had pain, or palpitation or syncope
Patient tested positive for influenza A.
Noted to have rhabdomyolysis and renal failure
Started on IV fluid, CPK improved, kidney function still elevated, seen by nephrology
Assessment/plan:
Status Post Fall with traumatic rhabdomyolysis
Chest X-ray: No acute cardiopulmonary process.
CT Head:
No acute abnormalities.
No intracranial hemorrhage, edema, or mass effect to suggest neoplasm.
No abnormal extra-axial fluid collections or recent infarct.
Diffuse cortical atrophy with prominence of CSF spaces.
Punctate and patchy areas of low density in periventricular and subcortical white matter bilaterally, likely ischemic or degenerative changes consistent with age.
No calvarial fracture.
Opacification of midportion of right maxillary sinus suggesting chronic inflammatory changes, possible retention cyst or polyp.
Plan: Fall precautions, PT/OT consult, delinquency prevention social worker for discharge planning, check orthostatic vitals.
Traumatic rhabdomyolysis.
Continue IV fluid with caution.
Monitor CPK, improved.
Acute renal failure on ?CKD/hyperkalemia.
IV fluid.
Avoid nephrotoxins.
Nephrology consulted
Unknown creatinine baseline
Influenza A
Started Tamiflu.
Chest X-ray: No acute cardiopulmonary process.
Duonebs as needed.
Acute COPD Exacerbation/history of COPD
Diffuse wheezing noted.
Continue home inhalers
Start Solu-Medrol and Duonebs.
Non-ischemic myocardial injury
Patient had a chest pain but appears musculoskeletal was coughing.
No EKG changes
Continue to monitor troponin.
Continue aspirin
Chronic CHF, unspecific type.
Holding Lasix for elevated renal function.
BNP elevated at 2260
History of Hypertension
No meds at home.
History of Hyperlipidemia
Continue statin therapy.
Macrocytic Anemia
Iron study pending
Vitamin B12 level pending
CODE STATUS: Full code
DVT prophylaxis: Heparin
Diet: Regular diet
Family communication: Discussed with son at bedside and telephone
Disposition: Overall improved
Physical therapy recommending rehab
Continue renally adjusted Tamiflu.
Continue albuterol
Wean steroid
Total time spent on today's encounter was 55 minutes which included time spent in counseling the patient/family regarding diagnosis and treatment plan as listed above, goals of care, and symptom management. Case was discussed with nursing staff,
specialists, and care coordinators/case management. All labs and imaging personally reviewed by me. Remainder the time spent in detailed review of previous records, lab data, imaging, and other medical provider documentation.
Part of this note was created using voice recognition system. Occasional wrong word or �sound alike� substitutions may have inadvertently occurred due to the inherent limitations of voice recognition software. If noted kindly bring it to my
attention for correction.
Anticipated Discharge: Within 24 hours
Subjective/Interval History
-
Date of Service: September 21, 2025
Patient seen and examined at bedside, denies any chest pain improved wheezing and shortness of breath, no abdominal pain, no nausea, no vomiting, no diarrhea or constipation.
Objective Data
-
Labs:
Laboratory Results
09/21/25
06:00
WBC Pending
Hgb Pending
Hct Pending
Plt Count Pending
Sodium Pending
Potassium Pending
Chloride Pending
Carbon Dioxide Pending
BUN Pending
Creatinine Pending
Glucose Pending
Calcium Pending
Vital Signs:
Vital Signs
Temp Pulse Resp BP Pulse Ox
97.3 F 83 18 171/78 97
09/21/25 11:41 09/21/25 11:41 09/21/25 11:41 09/21/25 11:41 09/21/25 11:41
I&O
09/20/25 09/21/25 09/22/25
06:59 06:59 06:59
Intake Total 1560 / 1560 480 / 480
Output Total 825 / 825 600 / 600
Balance 735 / 735 -120 / -120
Physical Exam
-
General: Well Developed, Well Nourished, No Apparent Distress and Comfortable
HEENT: Normocephalic, Atraumatic, Moist Mucous Membranes, No Ptosis, PERRLA and Nose Appears Normal
Respiratory: Rales and Non Labored Respirations
Cardiac: Regular Rhythm and S1/S2
Breast: Deferred by me
GI: Soft, Nontender, Nondistended and Normal Bowel Sounds
Genito-urinary: No Costovertebral Tender
Musculoskeletal: No Clubbing, No Cyanosis and No Edema
Skin: Warm
Neuro: Awake
Psych: Calm and Confused
--- NOTE | 2025-09-21 12:27 | W.PN.NEPH.PH ---
Today's Communication / Plan
-
Order Daily weights
Assessment/Plan
-
89 years old with history of COPD, coronary artery disease, hypertension, hyperlipidemia, came to the ER status post fall from [facility].
As per record patient was found on the ground for 6 to 7 hours,
Found to have influenza A positive
Renal consult for chronic kidney disease and hyperkalemia with a mild acuity stage IV kidney disease follows with Dr. Monteiro in [place]
Impression
Acute on chronic kidney disease stage IV uncertain baseline
Hyperkalemia
Influenza A
COPD
CAD
Elevated CK with history of downtime 7 hours
Plan
stable CKD, cr 3.3 s/p IVF, baseline GFR per son was at 20 slightly below on this admission
po bicarb for met acidisis, follow bladder scan
Tamiflu
AM labs
Status post nebulizer improved breathing
Ordered Daily weights will consider restarting Lasix pending increase in weight
d/w pt and son at bedside
d/w primary
-
-
Date of Service: September 21, 2025
CC / HPI / ROS
-
Chief Complaint:
MARCUS vs CKD
History of Present Illness:
cr no sig change at 3.3
Bps table on 2lit of O2
Review of Systems:
sob improving , still wheezing
no pain.
non oliguric with out foely
Labs
-
Labs:
eGFR 17.28 09/20/25 07:41
Ayx-Y-Hnrprxklzjm Pept 2260 pg/ml 09/18/25 15:54
Albumin 4.2 g/dl (3.5-5.0) 09/18/25 17:16
Physical Exam
-
Vital Signs:
Vital Signs
Temp Pulse Resp BP Pulse Ox
97.3 F 83 18 171/78 97
09/21/25 11:41 09/21/25 11:41 09/21/25 11:41 09/21/25 11:41 09/21/25 11:41
[2025-09-21 15:43] VITALS: BP 149/73
[2025-09-21 17:23] LABS: Hematocrit 27.6 % (39.0-52.0); Hemoglobin 9.4 g/dL (13.0-18.0); Mean Corp Hgb Conc. 34.1 g/dL (33.0-37.0); Mean Corpuscular Volume 103.0 fL (80.0-94.0); Platelet Count 154 10^3/uL (130-400); Red Cell Dist. Width 21.1 % (11.5-14.5)
[2025-09-21 18:03] LABS: Blood Urea Nitrogen 73 mg/dl (9-20); Calcium 8.8 mg/dl (8.4-10.2); Carbon Dioxide 14 mmol/L (22-30); Chloride 113 mmol/L (98-107); Estimated Creatinine Clearance 15 ml/min; Glucose 241 mg/dl (70-99); Potassium 4.9 mmol/L (3.5-5.1); Sodium 139 mmol/L (135-145); eGFR 19.37
[2025-09-21 19:11] VITALS: BP 134/72
[2025-09-21 23:13] VITALS: BP 148/73
[2025-09-22 03:13] VITALS: BP 124/60
[2025-09-22 06:00] VITALS: BMI 27.1
[2025-09-22 07:15] VITALS: BP 142/70
[2025-09-22] MEDS: VENTOLIN NEBULES INH ×2 (07:36→07:40)
[2025-09-22] MEDS: SYMBICORT 160/4.5 MCG INHALER 2 PUFF INH (07:36)
[2025-09-22] MEDS: SPIRIVA RESPIMAT 2.5 MCG 2 PUFF INH (07:36)
[2025-09-22] MEDS: CRESTOR 10 MG PO (07:38)
[2025-09-22] MEDS: ASPIR LOW (ENTERIC COATED) 81 MG PO (07:38)
[2025-09-22] MEDS: SOLU-MEDROL PF 40 MG IV (07:38)
[2025-09-22] MEDS: TAMIFLU 30 MG PO (07:38)
[2025-09-22] MEDS: SODIUM BICARBONATE 650 MG PO (07:38)
[2025-09-22] MEDS: DICLOFENAC 1% TOPICAL GEL 4 GRAM TOPICAL (07:40)
[2025-09-22] MEDS: HEPARIN 5000 UNITS SC ×2 (07:41)
[2025-09-22 09:32] LABS: Blood Urea Nitrogen 72 mg/dl (9-20); Calcium 8.7 mg/dl (8.4-10.2); Carbon Dioxide 17 mmol/L (22-30); Chloride 112 mmol/L (98-107); Estimated Creatinine Clearance 15 ml/min; Glucose 209 mg/dl (70-99); Sodium 141 mmol/L (135-145); eGFR 18.62
[2025-09-22 09:35] LABS: Hematocrit 28.5 % (39.0-52.0); Hemoglobin 9.5 g/dL (13.0-18.0); Mean Corp Hgb Conc. 33.3 g/dL (33.0-37.0); Mean Corpuscular Volume 102.5 fL (80.0-94.0); Platelet Count 190 10^3/uL (130-400); Red Cell Dist. Width 21.2 % (11.5-14.5)
[2025-09-22 09:38] LABS: Potassium 4.9 mmol/L (3.5-5.1)
[2025-09-22 09:39] VITALS: BP 154/84
[2025-09-22 10:14] VITALS: BP 154/84; PULSE 91; O2SAT 95
[2025-09-22 11:30] VITALS: BP 144/71
[2025-09-22] MEDS: VENTOLIN NEBULES 2.5 MG INH (11:40)
--- NOTE | 2025-09-22 11:56 | W.PN.HOSP.TC ---
Today's Communication/Plan
-
Overall improved
Discharge to SNF
Assessment / Plan
Assessment / Plan
Impression:
Patient is 89 years old with history of COPD, coronary artery disease, hypertension, hyperlipidemia, came to the ER status post fall from [facility].
As per record patient was found on the ground for 6 to 7 hours, does not remember if he had pain, or palpitation or syncope
Patient tested positive for influenza A.
Noted to have rhabdomyolysis and renal failure
Started on IV fluid, CPK improved, kidney function still elevated, seen by nephrology
Nephrology recommending sodium bicarb, overall shortness of breath improved and wheezing.
Will be discharged on prednisone tapering and okay to resume Lasix as per nephrology.
Will be discharged to SNF.
Assessment/plan:
Status Post Fall with traumatic rhabdomyolysis
Chest X-ray: No acute cardiopulmonary process.
CT Head:
No acute abnormalities.
No intracranial hemorrhage, edema, or mass effect to suggest neoplasm.
No abnormal extra-axial fluid collections or recent infarct.
Diffuse cortical atrophy with prominence of CSF spaces.
Punctate and patchy areas of low density in periventricular and subcortical white matter bilaterally, likely ischemic or degenerative changes consistent with age.
No calvarial fracture.
Opacification of midportion of right maxillary sinus suggesting chronic inflammatory changes, possible retention cyst or polyp.
Plan: Fall precautions, PT/OT consulted, social worker school for discharge planning, will be discharged to SNF.
Traumatic rhabdomyolysis.
Continue IV fluid with caution.
Monitor CPK, improved.
Acute renal failure on ?CKD/hyperkalemia.
IV fluid initially started.
Avoid nephrotoxins.
Nephrology consulted
Unknown creatinine baseline
Started bicarb
Influenza A
Started Tamiflu.
Chest X-ray: No acute cardiopulmonary process.
Duonebs as needed.
Acute COPD Exacerbation/history of COPD
Diffuse wheezing noted.
Continue home inhalers
Start Solu-Medrol and Duonebs.
Non-ischemic myocardial injury
Patient had a chest pain but appears musculoskeletal was coughing.
No EKG changes
Continue to monitor troponin.
Continue aspirin
Chronic CHF, unspecific type.
Held Lasix in the beginning.
BNP elevated at 2260
Resume on discharge.
History of Hypertension
No meds at home.
History of Hyperlipidemia
Continue statin therapy
Macrocytic Anemia
Iron study pending
Vitamin B12 level pending
CODE STATUS: Full code
DVT prophylaxis: Heparin
Diet: Regular diet
Family communication: Discussed with son at bedside and telephone
Disposition: Overall improved
Discharge to SNF
Total time spent on today's encounter was 55 minutes which included time spent in counseling the patient/family regarding diagnosis and treatment plan as listed above, goals of care, and symptom management. Case was discussed with nursing staff,
specialists, and care coordinators/case management. All labs and imaging personally reviewed by me. Remainder the time spent in detailed review of previous records, lab data, imaging, and other medical provider documentation.
Part of this note was created using voice recognition system. Occasional wrong word or �sound alike� substitutions may have inadvertently occurred due to the inherent limitations of voice recognition software. If noted kindly bring it to my
attention for correction.
Anticipated Discharge: Today
Subjective/Interval History
-
Date of Service: September 22, 2025
Patient seen and examined at bedside, musculoskeletal chest pain with coughing, coughing and shortness of breath Improved, no abdominal pain, no nausea, no vomiting, no diarrhea or constipation.
Otherwise cleared for discharge.
Objective Data
-
Labs:
Laboratory Results
09/22/25
08:14
WBC 13.2 H
Hgb 9.5 L
Hct 28.5 L
Plt Count 190 D
Sodium 141
Potassium 4.9
Chloride 112 H
Carbon Dioxide 17 L
BUN 72 H
Creatinine 3.1 H
Glucose 209 H
Calcium 8.7
Vital Signs:
Vital Signs
Temp Pulse Resp BP Pulse Ox
97.4 F 80 18 142/70 95
09/22/25 07:15 09/22/25 11:42 09/22/25 11:42 09/22/25 07:15 09/22/25 11:42
I&O
09/21/25 09/22/25 09/23/25
06:59 06:59 06:59
Intake Total 480 / 480 1180 / 1180
Output Total 600 / 600 550 / 550
Balance -120 / -120 630 / 630
Physical Exam
-
General: Well Developed, Well Nourished, No Apparent Distress and Comfortable
HEENT: Normocephalic, Atraumatic, Moist Mucous Membranes, No Ptosis, PERRLA and Nose Appears Normal
Respiratory: Rales and Non Labored Respirations
Cardiac: Regular Rhythm and S1/S2
Breast: Deferred by me
GI: Soft, Nontender, Nondistended and Normal Bowel Sounds
Genito-urinary: No Costovertebral Tender
Musculoskeletal: No Clubbing, No Cyanosis and No Edema
Skin: Warm
Neuro: Awake
Psych: Calm and Confused
[2025-09-22 12:25] LABS: COVID-19 Antigen Negative (Negative)
--- NOTE | 2025-09-22 12:39 | CM ---
Addendum entered by Yolande Osborne 09/22/25 13:00:
IMM completed and signed form placed on chart.
Original Note:
Patient seen at bedside in [address] [place] [address]. Patient for discharge back to SNF; [facility]. Please call [phone]/fax [phone]. Patient for wheelchair van transportation, cost and phone numbers provided to patient son. CM will review IMM and place
completed form on chart. CM awaiting time of wheelchair van. CM will continue to follow for discharge planning needs.
Plan; SNF at [facility] today
--- NOTE | 2025-09-22 13:04 | W.PN.NEPH.PH ---
Today's Communication / Plan
-
OK with discharge to follow up with outpatient Nephrology in [place]
Assessment/Plan
-
89 years old with history of COPD, coronary artery disease, hypertension, hyperlipidemia, came to the ER status post fall from [facility].
As per record patient was found on the ground for 6 to 7 hours,
Found to have influenza A positive
Renal consult for chronic kidney disease and hyperkalemia with a mild acuity stage IV kidney disease follows with Dr. Monteiro in [place]
Impression
Acute on chronic kidney disease stage IV uncertain baseline
Hyperkalemia
Influenza A
COPD
CAD
Elevated CK with history of downtime 7 hours
Plan
stable CKD, cr 3.3 s/p IVF, baseline GFR per son was at 20 slightly below on this admission
po bicarb for met acidisis, follow bladder scan
Tamiflu
AM labs
Status post nebulizer improved breathing
Okay with the discharge from a renal standpoint on is regular Lasix dose
d/w pt and son at bedside
d/w primary
-
-
Date of Service: September 22, 2025
CC / HPI / ROS
-
Chief Complaint:
MARCUS vs CKD
History of Present Illness:
cr no sig change at 3.3
Bps table on 2lit of O2
Review of Systems:
sob improving , still wheezing
no pain.
non oliguric with out foely
Labs
-
Labs:
WBC 13.2 10^3/uL (4.8-10.8) H 09/22/25 08:14
RBC 2.78 10^6/uL (4.70-6.10) L 09/22/25 08:14
Hgb 9.5 g/dL (13.0-18.0) L 09/22/25 08:14
Hct 28.5 % (39.0-52.0) L 09/22/25 08:14
Plt Count 190 10^3/uL (130-400) D 09/22/25 08:14
Sodium 141 mmol/L (135-145) 09/22/25 08:14
Potassium 4.9 mmol/L (3.5-5.1) 09/22/25 08:14
Chloride 112 mmol/L (98-107) H 09/22/25 08:14
Carbon Dioxide 17 mmol/L (22-30) L 09/22/25 08:14
BUN 72 mg/dl (9-20) H 09/22/25 08:14
Creatinine 3.1 mg/dL (0.7-1.3) H 09/22/25 08:14
eGFR 18.62 09/22/25 08:14
Glucose 209 mg/dl (70-99) H 09/22/25 08:14
Calcium 8.7 mg/dl (8.4-10.2) 09/22/25 08:14
Qjd-E-Vdupvnutlfk Pept 2260 pg/ml 09/18/25 15:54
Albumin 4.2 g/dl (3.5-5.0) 09/18/25 17:16
Physical Exam
-
Vital Signs:
Vital Signs
Temp Pulse Resp BP Pulse Ox
97.4 F 80 18 144/71 95
09/22/25 11:30 09/22/25 11:42 09/22/25 11:42 09/22/25 11:30 09/22/25 11:42
Respiratory:: Bilateral: Coarse
Lung Excursion:: Normal
Abdomen:: Soft
Bowel Sounds:: Normal
Extremity Edema:: None: Bilateral:
[2025-09-22 15:00] VITALS: BP 148/72
--- NOTE | 2025-09-22 15:15 | W.DCSUMMARY ---
Discharge Summary
Discharge Data
Date of Admission: 09/18/25
Date of Discharge: 09/22/25
Total time spent discharging patient (in min): 40
-
Pending Results: No
Hospital Course
Hospital course
Patient is 89 years old with history of COPD, coronary artery disease, hypertension, hyperlipidemia, came to the ER status post fall from [facility].
As per record patient was found on the ground for 6 to 7 hours, does not remember if he had pain, or palpitation or syncope
Patient tested positive for influenza A.
Noted to have rhabdomyolysis and renal failure
Started on IV fluid, CPK improved, kidney function still elevated, seen by nephrology
Nephrology recommending sodium bicarb, overall shortness of breath improved and wheezing.
Will be discharged on prednisone tapering and okay to resume Lasix as per nephrology.
Will be discharged to SNF.
During hospitalization patient was treated from the following
Status Post Fall with traumatic rhabdomyolysis
Chest X-ray: No acute cardiopulmonary process.
CT Head:
No acute abnormalities.
No intracranial hemorrhage, edema, or mass effect to suggest neoplasm.
No abnormal extra-axial fluid collections or recent infarct.
Diffuse cortical atrophy with prominence of CSF spaces.
Punctate and patchy areas of low density in periventricular and subcortical white matter bilaterally, likely ischemic or degenerative changes consistent with age.
No calvarial fracture.
Opacification of midportion of right maxillary sinus suggesting chronic inflammatory changes, possible retention cyst or polyp.
Plan: Fall precautions, PT/OT consulted, social media developer for discharge planning, will be discharged to SNF.
Traumatic rhabdomyolysis.
Continue IV fluid with caution.
Monitor CPK, improved.
Acute renal failure on ?CKD/hyperkalemia.
IV fluid initially started.
Avoid nephrotoxins.
Nephrology consulted
Unknown creatinine baseline
Started bicarb
Influenza A
Started Tamiflu.
Chest X-ray: No acute cardiopulmonary process.
Duonebs as needed.
Acute COPD Exacerbation/history of COPD
Diffuse wheezing noted.
Continue home inhalers
Start Solu-Medrol and Duonebs.
Non-ischemic myocardial injury
Patient had a chest pain but appears musculoskeletal was coughing.
No EKG changes
Continue to monitor troponin.
Continue aspirin
Chronic CHF, unspecific type.
Held Lasix in the beginning.
BNP elevated at 2260
Resume on discharge.
History of Hypertension
No meds at home.
History of Hyperlipidemia
Continue statin therapy
Macrocytic Anemia
Iron study pending
Vitamin B12 level pending
CODE STATUS: Full code
DVT prophylaxis: Heparin
Diet: Regular diet
Family communication: Discussed with son at bedside and telephone
Disposition: Overall improved
Discharge to SNF
Total time spent on today's encounter was 40 minutes which included time spent in counseling the patient/family regarding diagnosis and treatment plan as listed above, goals of care, and symptom management. Case was discussed with nursing staff,
specialists, and care coordinators/case management. All labs and imaging personally reviewed by me. Remainder the time spent in detailed review of previous records, lab data, imaging, and other medical provider documentation.
Anticipated Discharge: Today
Discharge Plan
-
Patient Disposition: Longterm/SNF
Discharge Diagnosis/Procedures: Status Post Fall with traumatic rhabdomyolysis
Traumatic rhabdomyolysis.
Acute renal failure on ?CKD/hyperkalemia.
Influenza A
Acute COPD Exacerbation/history of COPD
Condition: Fair
Diet: As tolerated and Regular
Activity: With assistance and As tolerated
Blood Work: BMP after 1 week
Referrals:
Yon Breen DO [Active, Nephrology] - in two to four weeks
Madalyn Culver DO [Family Provider, Internal Medicine]
Prescriptions:
New
dextromethorphan-guaifenesin 10-100 mg/5 mL Syrup
10 ml PO Q4HPRN PRN (Reason: cough) Qty: 237 0RF
prednisone 10 mg tablet
See Taper PO DAILY Qty: 30 0RF
Taper: Prednisone DC Starting at 40 mg daily
40 mg Daily for 3 Days and 0 Hour
30 mg Daily for 3 Days and 0 Hour
20 mg Daily for 3 Days and 0 Hour
10 mg Daily for 3 Days and 0 Hour
sodium bicarbonate 650 mg Tablet
650 mg PO BID Qty: 60 0RF
(DME) basic metabolic panel
See Rx Instructions .ROUTE .MEDSUPPLY Qty: 1 0RF
Rx Instructions:
To be done within a week
Diagnosis: Renal failure.
Please fax result to PCP/nephrology
Continued
aspirin 81 mg Tablet,Delayed Release (Dr/Ec)
81 mg PO DAILY
furosemide 20 mg Tablet
20 mg PO MOWEFR@0800
albuterol sulfate 90 mcg/actuation Hfa Aerosol Inhaler
2 puff INHALATION R Q4HPRN PRN (Reason: sob/wheezing)
rosuvastatin 10 mg Tablet
10 mg PO DAILY
Trelegy Ellipta 200-62.5-25 mcg Blister With Device
1 inh INHALATION R BID
diclofenac sodium 1 % gel
1 applic topical DAILY
Discontinued
ibuprofen 200 mg Tablet
400 mg PO TIDPRN PRN (Reason: mild pain)
Discharge Orders:
Discharge Patient (As Directed); Ordered 09/22/25
Ordered By: Darin Faust
Discharge Date and Time
Print Language: ETHIOPIAN
== END 2025-09-22 15:45 | DRG 565 ==
LOC: 2 NORTH 17:35
PROVIDERS: ADMITTING PHYSICIAN General Practice; CONSULT PHYSICIAN Internal Medicine Nephrology; EMERGENCY PHYSICIAN Emergency Medicine; FAMILY PHYSICIAN Internal Medicine
DX: T79.6XXA Traumatic ischemia of muscle, initial encounter (principal); I13.0 Hypertensive heart and chronic kidney disease with heart failure and stage 1 through stage 4 chronic kidney disease, or unspecified chronic kidney disease; N17.9 Acute kidney failure, unspecified; J44.1 Chronic obstructive pulmonary disease with (acute) exacerbation; I5A Non-ischemic myocardial injury (non-traumatic); N18.4 Chronic kidney disease, stage 4 (severe); J44.0 Chronic obstructive pulmonary disease with (acute) lower respiratory infection; J10.1 Influenza due to other identified influenza virus with other respiratory manifestations; I50.9 Heart failure, unspecified; I25.10 Atherosclerotic heart disease of native coronary artery without angina pectoris; D53.9 Nutritional anemia, unspecified; E78.00 Pure hypercholesterolemia, unspecified; E87.5 Hyperkalemia; W19.XXXA Unspecified fall, initial encounter; Z11.52 Encounter for screening for COVID-19; Z79.82 Long term (current) use of aspirin; Z79.899 Other long term (current) drug therapy
CPT/HCPCS: 70450; 71045; 71046; 80048; 80053; 80061; 81003; 81015; 82550; 82607; 82728; 83550; 83735; 83880; 84443; 84484; 85025; 85027; 87502; 87811; 93005; 94640; 97116; 97163; 97167; 97530; 97535; 99285